=== PATIENT | female | born 1975 | race Caucasian/White ===

== ENCOUNTER 2017-07-02 23:07 | Emergency (ER) | payer MEDICAID ==
[~2017-07-02] VITALS: Ht 149.9 cm; Wt 57.0 kg
[~2017-07-02 23:07] MED LIST: CYCL-1 PO; IBUP-1573 PO; SILV20CR13 TOP
[2017-07-02 23:31] VITALS: BP 125/78
== END 2017-07-02 23:33 | disposition home or self-care (01) ==
LOC: ER 23:08
DX: J20.9 Acute bronchitis, unspecified (principal); J02.9 Acute pharyngitis, unspecified; R07.89 Other chest pain; F17.200 Nicotine dependence, unspecified, uncomplicated; F15.10 Other stimulant abuse, uncomplicated; Z56.0 Unemployment, unspecified; Z79.899 Other long term (current) drug therapy
CPT/HCPCS: 99281

== ENCOUNTER 2017-08-10 19:45 | Emergency (ER) | payer MEDICAID ==
[~2017-08-10] VITALS: Ht 4948.4 cm; Wt 60.0 kg
[2017-08-10 19:58] VITALS: BP 114/78
[2017-08-10 20:17] LABS: URINE HCG NEGATIVE (NEG)
[2017-08-10 20:18] LABS: CLARITY,URINE CLEAR (Clear); COLOR,URINE YELLOW (Yellow); GLUCOSE, URINE NEGATIVE (Neg); KETONES,URINE NEGATIVE (Neg); LEUKOCYTE ESTERASE ,URINE SMALL (Neg); NITRITES, URINE NEGATIVE (Neg); OCCULT BLOOD,URINE SMALL (Neg); PROTEIN,URINE TRACE mg/dl (Neg)
[2017-08-10 20:20] LABS: UA COLLECTION TYPE CLN CATCH MIDSTREAM
[2017-08-10] MEDS ORDERED: CIPR-230 PO (20:23)
[2017-08-10] MEDS ORDERED: normal saline 1000ml 1,000 ML IV ONE (20:25)
[2017-08-10] MEDS ORDERED: CefTRIAXone/D5W-Rocephin 1gm 50 ML IV ONE (20:25)
[2017-08-10 20:29] LABS: WBC,URINE 50-100 /HPF (0-4)
[2017-08-10 20:30] LABS: BACTERIA,URINE 1+ /HPF (Neg); RBC,URINE 0-2 /HPF (0-2); SQUAMOUS EPITHELIAL CELL,UR FEW /LPF (FEW)
[2017-08-10 20:31] LABS: MUCUS STRANDS FEW /LPF (Neg)
== END 2017-08-10 20:36 | disposition home or self-care (01) ==
LOC: ER 19:45
DX: N12 Tubulo-interstitial nephritis, not specified as acute or chronic (principal); F17.200 Nicotine dependence, unspecified, uncomplicated; F12.10 Cannabis abuse, uncomplicated; F15.10 Other stimulant abuse, uncomplicated; Z56.0 Unemployment, unspecified; Z79.899 Other long term (current) drug therapy
CPT/HCPCS: 81001; 81025; 87077; 87088; 87186; 99284

== ENCOUNTER 2018-03-01 13:01 | Outpatient (CLI) | payer MEDICAID ==
[2018-03-01 13:01] VITALS: BP 131/91
[~2018-03-01 13:01] MED LIST changes: +ACET-3068 PO; +CEPH500C5 PO
== END 2018-03-01 13:31 | disposition home or self-care (01) ==
LOC: ORTHO 13:01
PROVIDERS: ATTEND Nurse Practitioner Family
DX: M25.562 Pain in left knee (principal); G89.29 Other chronic pain; F17.210 Nicotine dependence, cigarettes, uncomplicated; F12.90 Cannabis use, unspecified, uncomplicated; F15.90 Other stimulant use, unspecified, uncomplicated; Z56.0 Unemployment, unspecified
CPT/HCPCS: 99213

== ENCOUNTER 2018-06-04 17:37 | Emergency (ER) | payer MEDICAID ==
[~2018-06-04] VITALS: Ht 149.9 cm; Wt 60.3 kg
[~2018-06-04 17:37] MED LIST changes: -ACET-3068 PO
[2018-06-04 18:24] LABS: URINE HCG NEGATIVE (NEG)
[2018-06-04 18:25] LABS: CLARITY,URINE CLEAR (Clear); COLOR,URINE STRAW (Yellow); GLUCOSE, URINE NEGATIVE (Neg); KETONES,URINE NEGATIVE (Neg); LEUKOCYTE ESTERASE ,URINE TRACE (Neg); NITRITES, URINE NEGATIVE (Neg); OCCULT BLOOD,URINE TRACE-LYSED (Neg); PROTEIN,URINE NEGATIVE (Neg); UROBILINOGEN,URINE 0.2 E.U/dL (0.2-1.0)
[2018-06-04 18:28] LABS: UA COLLECTION TYPE CLN CATCH MIDSTREAM
[2018-06-04 18:42] LABS: BACTERIA,URINE FEW /HPF (Neg); MUCUS STRANDS NONE SEEN /LPF (Neg); RBC,URINE NONE SEEN /HPF (0-2); SQUAMOUS EPITHELIAL CELL,UR FEW /LPF (FEW); WBC CLUMPS,URINE FEW /HPF (NEGATIVE)
[2018-06-04] MEDS ORDERED: ketorolac trometh. 30mg/ml inj. IM ONE (18:45)
[2018-06-04] MEDS ORDERED: ketorolac trometh inj. 60 MG/2 ML VIAL IM ONE (18:45)
[2018-06-04] MEDS ORDERED: HYDROcodone/acetaminophen 10/325mg tab PO ONE (18:45)
[2018-06-04] MEDS ORDERED: CEPH500C5 PO (18:59)
[2018-06-04] MEDS ORDERED: cephalexin 500mg capsule PO ONE (19:00)
[2018-06-04 19:09] VITALS: BP 123/76
== END 2018-06-04 19:11 | disposition home or self-care (01) ==
LOC: ER 17:37
DX: N39.0 Urinary tract infection, site not specified (principal); M54.5 Low back pain; F12.90 Cannabis use, unspecified, uncomplicated; F15.90 Other stimulant use, unspecified, uncomplicated; Z98.51 Tubal ligation status; Z56.0 Unemployment, unspecified; Z79.899 Other long term (current) drug therapy
CPT/HCPCS: 81001; 81025; 87077; 87088; 87186; 96372; 99283; J1885

== ENCOUNTER 2018-11-29 18:13 | Emergency (ER) | payer MEDICAID ==
[~2018-11-29] VITALS: Ht 149.9 cm; Wt 58.0 kg
[2018-11-29 18:20] VITALS: BP 115/77
[2018-11-29] MEDS ORDERED: HYDROcodone/acetaminophen 5mg/325mg tablet PO ONE (20:35)
[2018-11-29] MEDS ORDERED: acetaminophen 325mg tablet PO ONE (20:35)
[2018-11-29] MEDS ORDERED: cyclobenzaprine 10mg tablet PO ONE (20:35)
[2018-11-29] MEDS ORDERED: ketorolac trometh inj. 60 MG/2 ML VIAL IM ONE (20:35)
== END 2018-11-29 22:40 | disposition left against medical advice (07) ==
LOC: ER 18:14
DX: M54.5 Low back pain (principal); F12.90 Cannabis use, unspecified, uncomplicated; F15.90 Other stimulant use, unspecified, uncomplicated; Z98.890 Other specified postprocedural states; Z98.51 Tubal ligation status; Z56.0 Unemployment, unspecified; Z79.899 Other long term (current) drug therapy
CPT/HCPCS: 99281

== ENCOUNTER 2019-04-04 15:54 | Emergency (ER) | payer MEDICAID ==
[~2019-04-04] VITALS: Ht 149.9 cm; Wt 58.0 kg
[2019-04-04 15:57] VITALS: BP 111/58
[2019-04-04] MEDS ORDERED: METH-360 PO (16:38)
[2019-04-04] MEDS ORDERED: IBUP-1985 PO (16:38)
[2019-04-04] MEDS ORDERED: ketorolac tromethamine 15mg/ml inj. IM ONE (16:40)
[2019-04-04] MEDS ORDERED: orphenadrine citrate 60mg/2ml inj. IM ONE (16:40)
== END 2019-04-04 17:28 | disposition home or self-care (01) ==
LOC: ER 15:55
DX: M54.5 Low back pain (principal); F12.90 Cannabis use, unspecified, uncomplicated; F15.90 Other stimulant use, unspecified, uncomplicated; F17.200 Nicotine dependence, unspecified, uncomplicated; Z56.0 Unemployment, unspecified; Z98.51 Tubal ligation status; Z98.890 Other specified postprocedural states; Z79.899 Other long term (current) drug therapy
CPT/HCPCS: 96372; 99283; J1885; J2360

== ENCOUNTER 2019-11-29 10:22 | Emergency (ER) | payer MEDICAID ==
[~2019-11-29] VITALS: Ht 149.9 cm; Wt 60.0 kg
[~2019-11-29 10:22] MED LIST changes: -CEPH500C5 PO; +IBUP-1985 PO; +METH-360 PO
[2019-11-29] MEDS ORDERED: ketorolac tromethamine 15mg/ml inj. IV ONE (11:20)
[2019-11-29 11:42] LABS: BASOPHILS # (AUTO) 0.1 X10'3 (0-0.2); EOSINOPHILS # (AUTO) 0.7 X10'3 (0-0.9); EOSINOPHILS % (AUTO) 8.1 % (0-6); HEMATOCRIT 42.4 % (35.0-45.0); HEMOGLOBIN 14.4 g/dl (12.0-16.0); LYMPHOCYTES # (AUTO) 2.5 X10'3 (1.1-4.8); LYMPHOCYTES % (AUTO) 30.1 % (21-51); MEAN CORPUSCULAR HGB CONC 34.1 g/dL (33.0-36.5); MEAN PLATELET VOLUME 7.7 FL (7.4-10.4); MONOCYTES # (AUTO) 0.7 X10'3 (0-0.9); MONOCYTES % (AUTO) 8.9 % (2-12); NEUTROPHILS # (AUTO) 4.3 X10'3 (1.8-7.7); NEUTROPHILS % (AUTO) 51.9 % (42-75); PLATELET COUNT 288 X10'3 (140-440); RED BLOOD COUNT 4.66 X10'6 (4.20-5.60); RED CELL DISTRIBUTION WIDTH 12.8 % (11.5-14.5); WHITE BLOOD COUNT 8.2 X10'3 (4.5-11.0)
[2019-11-29 11:42] LABS: URINE HCG NEGATIVE (NEG)
[2019-11-29 11:51] LABS: CLARITY,URINE CLEAR (Clear); COLOR,URINE YELLOW (Yellow); GLUCOSE, URINE NEGATIVE (Neg); KETONES,URINE NEGATIVE (Neg); LEUKOCYTE ESTERASE ,URINE NEGATIVE (Neg); NITRITES, URINE NEGATIVE (Neg); OCCULT BLOOD,URINE NEGATIVE (Neg); PROTEIN,URINE NEGATIVE (Neg); UROBILINOGEN,URINE 0.2 E.U/dL (0.2-1.0)
[2019-11-29 11:55] LABS: ALANINE AMINOTRANSFERASE 26 U/L (12-78); ALBUMIN 3.8 G/DL (3.4-5.0); ALBUMIN/GLOBULIN RATIO 1.2 (1.1-1.5); ALKALINE PHOSPHATASE 95 IU/L (46-116); ANION GAP 4 (8-16); ASPARTATE AMINO TRANSFERASE 22 U/L (10-37); BILIRUBIN,TOTAL 0.7 MG/DL (0.1-1.0); BLOOD UREA NITROGEN 8 MG/DL (7-18); BUN/CREATININE RATIO 9.9 (6.6-38.0); CALCIUM 8.3 MG/DL (8.5-10.1); CHLORIDE 103 MMOL/L (99-107); CREATININE 0.81 MG/DL (0.40-0.90); GLUCOSE 78 MG/DL (70-104); LIPASE 212 U/L (73-393); POTASSIUM 3.8 MMOL/L (3.5-5.1); SODIUM 131 MMOL/L (135-145); TOTAL CARBON DIOXIDE 23.6 MMOL/L (24-32); TOTAL PROTEIN 7.1 G/DL (6.4-8.2); eGFR 78 ML/MIN
[2019-11-29 11:55] LABS: UA COLLECTION TYPE CLN CATCH MIDSTREAM
[2019-11-29] MEDS ORDERED: KETO10TA2 PO (12:42)
[2019-11-29 13:16] VITALS: BP 103/70
== END 2019-11-29 13:10 | disposition home or self-care (01) ==
LOC: ER 10:23
DX: M54.5 Low back pain (principal); R10.32 Left lower quadrant pain; F12.90 Cannabis use, unspecified, uncomplicated; F15.90 Other stimulant use, unspecified, uncomplicated; Z98.51 Tubal ligation status; Z87.440 Personal history of urinary (tract) infections; Z98.890 Other specified postprocedural states; Z56.0 Unemployment, unspecified; Z79.899 Other long term (current) drug therapy
CPT/HCPCS: 36415; 74176; 80053; 81003; 81025; 83690; 85025; 96374; 99284; J1885

== ENCOUNTER 2020-01-31 15:02 | Emergency (ER) | payer MEDICAID ==
[~2020-01-31] VITALS: Ht 149.9 cm; Wt 56.8 kg
[~2020-01-31 15:02] MED LIST changes: +KETO10TA2 PO
[2020-01-31 15:04] VITALS: BP 120/78
[2020-01-31] MEDS ORDERED: ondansetron 4mg rapidly disintigrating tab PO ONE (17:20)
[2020-01-31] MEDS ORDERED: acetaminophen 325mg tablet PO ONE (17:20)
[2020-01-31] MEDS ORDERED: ibuprofen tablet 400 MG TABLET PO ONE (17:20)
[2020-01-31] MEDS ORDERED: amoxicillin 250mg capsule PO ONE (17:20)
[2020-01-31] MEDS ORDERED: ACET-812 PO (17:23)
[2020-01-31] MEDS ORDERED: ONDA8TAB6 PO (17:23)
[2020-01-31] MEDS ORDERED: AMOX500C2 PO (17:23)
== END 2020-01-31 17:33 | disposition home or self-care (01) ==
LOC: ER 15:02
DX: K02.9 Dental caries, unspecified (principal); F12.90 Cannabis use, unspecified, uncomplicated; F15.90 Other stimulant use, unspecified, uncomplicated; Z98.51 Tubal ligation status; Z98.890 Other specified postprocedural states; Z56.0 Unemployment, unspecified; Z79.899 Other long term (current) drug therapy
CPT/HCPCS: 99284

== ENCOUNTER 2021-03-25 16:50 | Inpatient (IN) | payer MEDICAID ==
[~2021-03-25] VITALS: Ht 160 cm; Wt 56.8 kg
[~2021-03-25 16:50] MED LIST changes: +ACET-812 PO; +ONDA8TAB6 PO; +rocuronium 10mg/ml inj IV ONE; +sod chloride 0.9% 10ml flush syringe IV ONE
[2021-03-25] MEDS ORDERED: LIDOcaine 1% W/epiNEPHrine 1:200,000 10ml vial IJ ONE (17:00)
[2021-03-25] MEDS ORDERED: normal saline 1000ML IV soln IVB ONE (17:00)
[2021-03-25] MEDS ORDERED: LORazepam 2 mg/ml vial IV ONE ×2 (17:00→18:15)
[2021-03-25] MEDS ORDERED: TETanus/Pertussis (Acell)/Diphther VAC/PF (Tdap-Adult) 0.5ml syringe IMVAC ONE (17:00)
[2021-03-25] MEDS: morphine 2 MG/ML inj. syringe IV PRN ×3 (17:35→21:52)
--- NOTE | 2021-03-25 17:38 | NUR ---
ANIMAL CONTROL: [phone] OFFICER BOUCHER CALLED AND LEFT NUMBER TO FILE REPORT WHEN PT IS ABLE TO SPEAK.
[2021-03-25 17:45] LABS: BASOPHILS % (AUTO) 0.3 % (0-1); EOSINOPHILS # (AUTO) 0.4 X10'3 (0-0.9); EOSINOPHILS % (AUTO) 3.1 % (0-6); HEMATOCRIT 36.5 % (35.0-45.0); HEMOGLOBIN 12.6 g/dl (12.0-16.0); LYMPHOCYTES % (AUTO) 21.1 % (21-51); MEAN CORPUSCULAR HEMOGLOBIN 30.7 PG (27.0-31.0); MEAN CORPUSCULAR HGB CONC 34.5 g/dL (33.0-36.5); MEAN CORPUSCULAR VOLUME 89.1 FL (78-98); MEAN PLATELET VOLUME 8.1 FL (7.4-10.4); MONOCYTES # (AUTO) 0.9 X10'3 (0-0.9); MONOCYTES % (AUTO) 6.3 % (2-12); NEUTROPHILS # (AUTO) 9.8 X10'3 (1.8-7.7); NEUTROPHILS % (AUTO) 69.2 % (42-75); PLATELET COUNT 307 X10'3 (140-440); RED CELL DISTRIBUTION WIDTH 13.1 % (11.5-14.5); WHITE BLOOD COUNT 14.2 X10'3 (4.5-11.0)
[2021-03-25] MEDS ORDERED: morphine 4 MG/ML inj SYRINge IM ONE (17:55)
[2021-03-25] MEDS ORDERED: ondansetron 4mg rapidly disintigrating tab PO ONE (17:55)
[2021-03-25] MEDS ORDERED: LORazepam 2 mg/ml vial IM ONE (17:55)
[2021-03-25 18:00] LABS: ALANINE AMINOTRANSFERASE 17 U/L (12-78); ALBUMIN 3.6 G/DL (3.4-5.0); ALBUMIN/GLOBULIN RATIO 1.2 (1.1-1.5); ALKALINE PHOSPHATASE 77 IU/L (46-116); ANION GAP 15 (8-16); ASPARTATE AMINO TRANSFERASE 16 U/L (10-37); BILIRUBIN,TOTAL 0.4 MG/DL (0.1-1.0); BLOOD UREA NITROGEN 13 MG/DL (7-18); BUN/CREATININE RATIO 11.9 (6.6-38.0); CALCIUM 8.9 MG/DL (8.5-10.1); CHLORIDE 107 MMOL/L (99-107); CREATININE 1.09 MG/DL (0.40-0.90); ETHANOL < 0.010 GM/DL (0.0-0.010); GLUCOSE 136 MG/DL (70-104); POTASSIUM 3.3 MMOL/L (3.5-5.1); SODIUM 141 MMOL/L (135-145); TOTAL CARBON DIOXIDE 18.8 MMOL/L (24-32); TOTAL PROTEIN 6.5 G/DL (6.4-8.2); eGFR 55 ML/MIN
[2021-03-25] MEDS ORDERED: morphine 4 MG/ML inj SYRINge IV ONE ×2 (18:15→18:20)
[2021-03-25] MEDS ORDERED: ceFAZolin/D5W- 1GM premix 50 ML IV STA (19:38)
[2021-03-25] MEDS ORDERED: amox tr/potassium clavulanate 875/125mg TAB PO ONE (19:40)
[2021-03-25] MEDS ORDERED: morphine 2 MG/ML inj. syringe IV PRN ×2 (21:45)
[2021-03-25] MEDS ORDERED: mag hydrox/Alum hydrox/simeth 30ml oral suspension PO PRN (21:45)
[2021-03-25] MEDS ORDERED: acetaminophen 325mg tablet PO PRN (21:45)
[2021-03-25] MEDS ORDERED: potassium Cl 20 mEq SR tablet PO PRN ×2 (21:45)
[2021-03-25] MEDS ORDERED: magnesium hydroxide 30ml (MOM) UD suspension PO PRN (21:45)
[2021-03-25] MEDS ORDERED: potassium Cl 40MEQ/1/2NS 520ml 520 ML IV PRN ×2 (21:45)
[2021-03-25] MEDS ORDERED: ondansetron/PF 4mg/2ml inj IV PRN (21:45)
[2021-03-25] MEDS ORDERED: normal saline 1000ml 1,000 ML IV SCH (21:45)
[2021-03-26] MEDS ORDERED: ceFAZolin/D5W- 1GM premix 50 ML IV SCH
[2021-03-26] MEDS ORDERED: piperacillin/tazo 3.375gm/50ml 50 ML IV SCH
[2021-03-26] MEDS ORDERED: levetiracetam inj 1,000 MG in normal saline 100ml IV soln 90 ML IV ONE (00:11)
[2021-03-26] MEDS ORDERED: normal saline 1000ml 1,000 ML IV ONE (00:30)
[2021-03-26] MEDS ORDERED: FENTANYL-0.9 % NACL/PF 100 ML IV PRN ×2 (00:30→00:34)
[2021-03-26] MEDS ORDERED: propofol 1000mg/100ml bottle 100 ML IV SCH (00:30)
[2021-03-26] MEDS ORDERED: iohexol 350MG/ML 100ml bottle IV ONE (00:43)
[2021-03-26 00:48] LABS: RED BLOOD COUNT 3.88 X10'6 (4.20-5.60)
[2021-03-26 00:49] LABS: ABG BASE EXCESS -17.2 mmol/L (-2.0-2.0); ABG HCO3 16.2 mmol/L (22.0-26.0); ABG OXYGEN SATURATION 73.3 % (94-97); ABG PCO2 (T) 77.1 mmHg (32.0-45.0); ALLEN'S TEST POSITIVE; FCOHb 0.1 % (0.0-3.9); FMetHb 0.4 % (0.0-1.5); FO2Hb 72.9 % (94-97); PATIENT TEMPERATURE 36.2; PEEP 5 cm H2O; RESPIRATORY RATE 16 b/min; TIDAL VOLUME 400 mL; TOTAL HEMOGLOBIN 12.8 G/dl (12.0-16.0)
[2021-03-26 00:50] LABS: BASOPHILS % (AUTO) 0.2 % (0-1); EOSINOPHILS % (AUTO) 0.5 % (0-6); HEMATOCRIT 36.1 % (35.0-45.0); HEMOGLOBIN 12.2 g/dl (12.0-16.0); LYMPHOCYTES % (AUTO) 35.2 % (21-51); MEAN CORPUSCULAR HEMOGLOBIN 31.4 PG (27.0-31.0); MEAN CORPUSCULAR HGB CONC 33.7 g/dL (33.0-36.5); MEAN CORPUSCULAR VOLUME 93.1 FL (78-98); MEAN PLATELET VOLUME 7.9 FL (7.4-10.4); MONOCYTES # (AUTO) 0.2 X10'3 (0-0.9); MONOCYTES % (AUTO) 2.6 % (2-12); NEUTROPHILS # (AUTO) 5.3 X10'3 (1.8-7.7); NEUTROPHILS % (AUTO) 61.5 % (42-75); PLATELET COUNT 235 X10'3 (140-440); RED CELL DISTRIBUTION WIDTH 13.3 % (11.5-14.5); WHITE BLOOD COUNT 8.5 X10'3 (4.5-11.0)
[2021-03-26 01:01] LABS: ALANINE AMINOTRANSFERASE 64 U/L (12-78); ALBUMIN 2.2 G/DL (3.4-5.0); ALKALINE PHOSPHATASE 57 IU/L (46-116); ANION GAP 9 (8-16); ASPARTATE AMINO TRANSFERASE 75 U/L (10-37); BILIRUBIN,TOTAL 0.4 MG/DL (0.1-1.0); BLOOD UREA NITROGEN 12 MG/DL (7-18); CALCIUM 7.2 MG/DL (8.5-10.1); CHLORIDE 110 MMOL/L (99-107); CREATININE 0.86 MG/DL (0.40-0.90); GLUCOSE 215 MG/DL (70-104); POTASSIUM 3.5 MMOL/L (3.5-5.1); SODIUM 137 MMOL/L (135-145); TOTAL CARBON DIOXIDE 17.8 MMOL/L (24-32); TOTAL PROTEIN 4.3 G/DL (6.4-8.2); eGFR 72 ML/MIN
--- NOTE | 2021-03-26 01:06 | NUR ---
pt alert and oriented during iv placement and cleaning of head lac. pt stated she needed to use commode and rn went to get commode. came back to room and pt unresponsive to painful stimuli, foaming at mouth, agonal resperations and making gurgling sounds in airway. rn suctioned airway, and alerted er dr and hositalist. er physician at bedside for assessment and pt flaccid, pinpoint pupils and still not responsive. er doc suggested intubation, moved pt to rm 3 for intubation. pt being bagged by rt at this point, pt lost pulses. code blue report: -cpr initiated @ 0011 -1mg epi @ 0013 -narcan 0.2 mg @0015 -rosc @0016 at rate 57. -accucheck 127 @ 0016 -etomidate 20mg @0020 -rocuronium 70mg @ 0021
[2021-03-26 01:08] LABS: C-REACTIVE PROTEIN 0.27 MG/DL (0.0-0.5); ETHANOL < 0.010 GM/DL (0.0-0.010)
[2021-03-26 01:09] LABS: D-DIMER 3.26 MG/L FEU (0-0.50); PARTIAL THROMBOPLASTIN TIME 34 SECONDS (22-32)
[2021-03-26 01:23] LABS: URINE AMPHETAMINE SCREEN POSITIVE (Neg); URINE BARBITUATE SCREEN NEGATIVE (Neg); URINE BENZODIAZEPINES SCREEN NEGATIVE (Neg); URINE CANNABINOID SCREEN POSITIVE (Neg); URINE COCAINE SCREEN NEGATIVE (Neg); URINE METHADONE SCREEN NEGATIVE (Neg); URINE OPIATE SCREEN POSITIVE (Neg); URINE PHENCYCLIDINE SCREEN NEGATIVE (Neg)
[2021-03-26 01:46] LABS: CLARITY,URINE SLIGHTLY CLOUDY (Clear); COLOR,URINE YELLOW (Yellow); UA COLLECTION TYPE NON-SPECIFIED
[2021-03-26 01:47] LABS: GLUCOSE, URINE NEGATIVE (Neg); KETONES,URINE 40 mg/dl (Neg); LEUKOCYTE ESTERASE ,URINE NEGATIVE (Neg); NITRITES, URINE NEGATIVE (Neg); OCCULT BLOOD,URINE NEGATIVE (Neg); PROTEIN,URINE TRACE mg/dl (Neg)
[2021-03-26 01:50] LABS: BACTERIA,URINE FEW /HPF (Neg); RBC,URINE 0-2 /HPF (0-2); SQUAMOUS EPITHELIAL CELL,UR MODERATE /LPF (FEW)
[2021-03-26 01:51] LABS: HYALINE CASTS 0-3 /LPF (NEGATIVE); MUCUS STRANDS MODERATE /LPF (Neg); TRANSITIONAL EPI CELLS,URINE FEW /HPF
--- NOTE | 2021-03-26 01:55 | NUR ---
COOLING MEASURES INITIATED
--- NOTE | 2021-03-26 02:00 | NUR ---
BED BATH PROVIDED. HEAD TO TOE VISUAL ASSESSMENT. 2 OTHER HEAD LACS FOUND. WOUND IRRIGATED AND MD STAPLED BOTH LACS. CREPITIS ON UPPER LEFT CHEST, SIDE AND BACK. BRUSIE NOTED ON LEFT HIP. SMALL LAC BEHINDE RIGHT EAR.
[2021-03-26 02:28] LABS: TOTAL CELLS COUNTED 100
[2021-03-26 02:30] LABS: PLATELET ESTIMATE NORMAL
--- NOTE | 2021-03-26 03:40 | NUR ---
CONTACTED PT FATHER TO PROVIDE UPDATE. NOTIFIED PT FATHER THAT PT HEART STOPPED AND CPR WAS INITIATED. EXPLAINED THAT WE GOT HER HEART BEAT BACK AND THAT SHE IS ON A VENTILATOR AWAITING TRANFER FOR HIGHER LEVEL OF CARE. PT FATHER IS NOT SURE OF ANY MEDICAL CONDITIONS OR SUBSTANCE USE. REPORTS SHE JUST MOVED HOME 2 DAYS AGO.
[2021-03-26 04:25] LABS: ABG BASE EXCESS -9.1 mmol/L (-2.0-2.0); ABG HCO3 17.8 mmol/L (22.0-26.0); ABG PCO2 (T) 37.3 mmHg (32.0-45.0); ABG PO2 (T) 216.3 mmHg (75.0-100.0); ALLEN'S TEST Modified; FCOHb 0.3 % (0.0-3.9); FMetHb 0.3 % (0.0-1.5); FO2Hb 98.4 % (94-97); PATIENT TEMPERATURE 34.3; PEEP 10 cm H2O; RESPIRATORY RATE 22 b/min; TIDAL VOLUME 500 mL; TOTAL HEMOGLOBIN 13.4 G/dl (12.0-16.0)
--- NOTE | 2021-03-26 05:15 | NUR ---
PT RESPONDING TO PAINFUL STIMULI. NO PURPOSFUL MOVEMENTS AT THIS POINT. PT NOT FOLLOWING COMMANDS.
--- NOTE | 2021-03-26 05:35 | NUR ---
REPORT CALLED TO FABIOLA DOMINGUEZ
--- NOTE | 2021-03-26 05:35 | NUR ---
PT TRANSPORTED TO [facility] BY ROSALIO HAWKINS IN ROUTE W/ PT.
[2021-03-26] MEDS ORDERED: rocuronium 10mg/ml inj IV ONE (05:45)
[2021-03-26] MEDS ORDERED: NOREPINEPHRINE BITARTRATE/D5W 250 ML IV PRN (06:20)
[2021-03-26] MEDS ORDERED: NORepinephrine 8mg/ 250ml NS 250 ML IV PRN ×2 (06:20)
--- NOTE | 2021-03-26 07:28 | NUR ---
PT TRANSFERED TO [facility] FOR NEURO CARE. SBAR PROVIDED. PT VITALS: BP 107/76, SPO2 97%, HR 95 ON ARRIVAL. PLACED ON VENT @0643. IN ROUTE IV FLUIDS CONT. NOREPINEPHRINE 0.1MCG, PROPOFOL 10MCG, FENTANYL 75MCG, NS @ 150/HR.
[2021-03-26 07:35] VITALS: BP 107/77
[2021-03-26] MEDS ORDERED: docusate sod 100mg capsule PO SCH (08:00)
[2021-03-26] MEDS ORDERED: K and/or MAG REPLACEMENT MC SCH (08:00)
[2021-03-26] MEDS ORDERED: aspirin 325mg tablet NG SCH (08:30)
[2021-03-26] MEDS ORDERED: lactobacillus rhamnosus 10,000 MMU CELLS/CAPSULE PO SCH (20:00)
== END 2021-03-26 16:36 | disposition short-term general hospital (02) | DRG 384 ==
LOC: ER 16:50 → ED HOLD 21:52
PROVIDERS: ADMIT Internal Medicine; ATTEND Internal Medicine
PROC: 0HQ4XZZ Repair Neck Skin, External Approach (ICD-10-PCS; principal; 2021-03-25)
PROC: 5A12012 Performance of Cardiac Output, Single, Manual (ICD-10-PCS; 2021-03-25)
PROC: 5A1935Z Respiratory Ventilation, Less than 24 Consecutive Hours (ICD-10-PCS; 2021-03-25)
PROC: 0HQ0XZZ Repair Scalp Skin, External Approach (ICD-10-PCS; 2021-03-25)
PROC: 0HQEXZZ Repair Left Lower Arm Skin, External Approach (ICD-10-PCS; 2021-03-25)
PROC: 0BH17EZ Insertion of Endotracheal Airway into Trachea, Via Natural or Artificial Opening (ICD-10-PCS; 2021-03-25)
PROC: 3E0234Z Introduction of Serum, Toxoid and Vaccine into Muscle, Percutaneous Approach (ICD-10-PCS; 2021-03-25)
PROC: B32T1ZZ Computerized Tomography (CT Scan) of Left Pulmonary Artery using Low Osmolar Contrast (ICD-10-PCS; 2021-03-26)
PROC: B3201ZZ Computerized Tomography (CT Scan) of Thoracic Aorta using Low Osmolar Contrast (ICD-10-PCS; 2021-03-26)
PROC: B32S1ZZ Computerized Tomography (CT Scan) of Right Pulmonary Artery using Low Osmolar Contrast (ICD-10-PCS; 2021-03-26)
PROC: B4201ZZ Computerized Tomography (CT Scan) of Abdominal Aorta using Low Osmolar Contrast (ICD-10-PCS; 2021-03-26)
PROC: B4241ZZ Computerized Tomography (CT Scan) of Superior Mesenteric Artery using Low Osmolar Contrast (ICD-10-PCS; 2021-03-26)
PROC: B4281ZZ Computerized Tomography (CT Scan) of Bilateral Renal Arteries using Low Osmolar Contrast (ICD-10-PCS; 2021-03-26)
PROC: B42C1ZZ Computerized Tomography (CT Scan) of Pelvic Arteries using Low Osmolar Contrast (ICD-10-PCS; 2021-03-26)
PROC: B42H1ZZ Computerized Tomography (CT Scan) of Bilateral Lower Extremity Arteries using Low Osmolar Contrast (ICD-10-PCS; 2021-03-26)
PROC: B4211ZZ Computerized Tomography (CT Scan) of Celiac Artery using Low Osmolar Contrast (ICD-10-PCS; 2021-03-26)
DX: S01.01XA Laceration without foreign body of scalp, initial encounter (principal); I46.9 Cardiac arrest, cause unspecified; J96.92 Respiratory failure, unspecified with hypercapnia; J96.91 Respiratory failure, unspecified with hypoxia; F12.90 Cannabis use, unspecified, uncomplicated; F15.10 Other stimulant abuse, uncomplicated; S41.132A Puncture wound without foreign body of left upper arm, initial encounter; E87.2 Acidosis; S51.812A Laceration without foreign body of left forearm, initial encounter; R40.0 Somnolence; Z20.822 Contact with and (suspected) exposure to COVID-19; W54.0XXA Bitten by dog, initial encounter; Y93.89 Activity, other specified; Y92.89 Other specified places as the place of occurrence of the external cause; Y99.8 Other external cause status; Z23 Encounter for immunization; Z56.0 Unemployment, unspecified; Z79.899 Other long term (current) drug therapy
CPT/HCPCS: 12004; 12005; 36415; 36600; 70450; 71045; 71275; 72125; 73060; 73090; 74177; 80053; 80305; 80320; 81001; 82803; 82948; 83605; 83735; 83880; 84145; 84484; 85007; 85018; 85025; 85379; 85610; 85730; 86140; 87070; 87088; 87635; 90715; 93005; 94002; 94760; 96361; 96365; 96375; 99285; G0378; J0690; J1953; J2060; J2270; J2543; J2704; J3010; J7030; Q9967